=== PATIENT | male | born 1990 | race African-American/Black ===

== ENCOUNTER 2018-10-23 08:16 | Emergency (ER) | payer OTHER ==
[~2018-10-23] VITALS: Ht 165.1 cm; Wt 99.3 kg
[2018-10-23 09:40] VITALS: BP 140/90; TEMP 98
== END 2018-10-23 09:40 | disposition home or self-care (01) ==
LOC: ED 08:16
DX: L02.416 Cutaneous abscess of left lower limb (principal)
CPT/HCPCS: 99282

== ENCOUNTER 2018-12-29 10:45 | Emergency (ER) | payer OTHER ==
[~2018-12-29] VITALS: Ht 160 cm; Wt 99.3 kg
[2018-12-29 11:42] LABS: PLATELET COUNT 327 K/uL (142-355)
[2018-12-29 11:47] LABS: POTASSIUM 3.9 mmol/L (3.6-5.2); SODIUM 137 mmol/L (136-145)
[2018-12-29 12:30] VITALS: BP 129/79; TEMP 99.2
== END 2018-12-29 12:32 | disposition home or self-care (01) ==
LOC: ED 10:45
PROVIDERS: Family Medicine
DX: R07.89 Other chest pain (principal); R06.02 Shortness of breath; R94.5 Abnormal results of liver function studies
CPT/HCPCS: 36415; 80053; 82550; 82553; 84443; 84484; 85027; 93005; 99283